=== PATIENT | female | born 1995 | race Hispanic/Latino ===

== ENCOUNTER 2020-11-12 13:05 | Emergency (ER) | payer SELFPAY ==
[~2020-11-12] VITALS: Ht 157.5 cm; Wt 99.8 kg
[2020-11-12] MEDS ORDERED: CASIRIVIMAB/IMDEVIMAB 10 ML in SODIUM CHLORIDE 0.9% 100 ML IV ONE (13:30)
== END 2020-11-12 16:01 | disposition home or self-care (01) ==
LOC: ER 13:18
DX: R06.00 Dyspnea, unspecified (principal); B94.8 Sequelae of other specified infectious and parasitic diseases
CPT/HCPCS: 71045; 99283